=== PATIENT | female | born 1965 | race Caucasian/White ===

== ENCOUNTER → 2018-01-30 | Outpatient (CLI) | payer BC, OTHER ==
[~2018-01-30] VITALS: Ht 177.8 cm; Wt 125.2 kg
[~2018-01-30] MED LIST: ADDERALL 20 MG20 M1 PO; CELEXA40 MG PO; DICLOFENAC SODI25 MG PO
--- NOTE | ~2018-01-30 | CATHLAB ---
[facility] [address] [place] [address] INVASIVE PROCEDURE REPORT Name: DANE CHOWDHURY [facility]: [facility] [id number] Admission: 01/30/18 Attend Phys: Stephen Chacon Discharge: Date of : 65 Date of Service: 02/05/18 1156 Report #: [id number] THIS REPORT FOR: //name// APPROVED REPORT Study performed: 01/30/2018 08:48:28 Patient Details Patient Status: Out-Patient Room #: The patient is a 52 year-old female Event Personnel Stephen Painter Electronic Musical Instrument Repairer,, Mayda Aguilar RN RN, Louis Bellamy RN RN, Steven Hernández Partnoy, Nancy RTR, CLERK SECRETARY Monitor Procedures Performed Left Heart Cath w/or w/o Coronaries [id number] [facility] Indication Positive stress test, Chest pain Procedure Narrative The Right Groin^ was infiltrated with 1% Lidocaine subcutaneous anesthesia. A PINNACLE 4FR Sheath #[id number] sheath was inserted into the RFA^. Coronary angiography was performed using coronary diagnostic catheters. The right coronary system was accessed and visualized with a JR4 catheter. The left coronary system was accessed and visualized with a JL4 catheter. The left ventricle was accessed and visualized with a PIGTAIL catheter. Left ventricular/Aortic Valve gradient assessed via catheter pullback. Hemostasis was obtained with manual pressure following sheath removal without any complications. The patient tolerated the procedure well and there were no complications associated with the procedure. There was no hematoma. Intraoperative Conscious Sedation Sedation start time: 9.54 Case end Time: 10.25 Versed 2 mg Fluoro Time: 1.28 minutes Dose: DAP 2203.10 cGycm2 337 mGy Contrast Type and Amount: Omnipaque 45 ml [facility] [place] [address] INVASIVE PROCEDURE REPORT Name: DANE CHOWDHURY Room #: REG [facility]#: [id number] Admission: 01/30/18 Attend Phys: Stephen Chacon Discharge: Date of : 65 Date of Service: 02/05/18 1156 Report #: [id number] Coronary Angiography The patient's coronary anatomy is right dominant. Diagnostic Cath Left Main Left main is of normal origin and caliber bifurcates or tenderness in the left circumflex is free of high-grade disease. LAD Moderate caliber type III vessel which courses in the anterior interventricular sulcus tapering towards the apex and terminating in the posterior aspect of left ventricle. No significant high-grade lesions are noted. There is a partial bridging in the proximal third of the LAD. Diagonal 1 Cody elevated vessel without significant lesions identified Circumflex On her caliber vessel courses laterally giving rise to marginal branches of which no high-grade lesions are noted and terminates its is small caliber posterior wall branch at the giving rise to first marginal branch OM1 Large to moderate caliber vessel with quite tortuous course but free of high-grade disease Right Coronary Normal origin and dominant vessel without significant stenosis or irregularity seen R PDA Caliber proceeds posteriorly in the AV groove QRS a posterior descending artery. No significant stenotic lesions are noted caliber vessel without Left Ventriculography Left Ventriculography was not performed. Hemodynamics The aortic pressure is 137/78 mmHg with a mean of 101 mmHg. The left ventricular pressure is 135/14 mmHg with a mean of mmHg. The left ventricular end diastolic pressure is 24 mmHg. There was no gradient across the aortic valve upon pullback. Pullback from the left ventricle to the aorta revealed no gradient across the aortic valve. Conclusion 1. 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 Normal hemodynamics [facility] [address] [place] [address] INVASIVE PROCEDURE REPORT Name: DANE CHOWDHURY Room #: [facility] [id number] Admission: 01/30/18 Attend Phys: Stephen Chacon Discharge: Date of : 65 Date of Service: 02/05/18 1156 Report #: [id number] Recommendations Cardiac Risk Reduction Program <ELECTRONICALLY SIGNED> By: Stephen Painter MD 02/05/18 1156 1156 1156 Stephen Painter MD /INF
[2018-01-30 08:29] VITALS: BP 123/77
[2018-01-30 08:41] LABS: HEMATOCRIT 39.8 % (37.0-47.0); HEMOGLOBIN 13.4 gm/dL (12.0-15.0); MCHC 33.8 g/dL (28.0-37.0); MCV 88.8 fL (80.0-100.0); RBC 4.47 mil/uL (4.20-5.00); RDW 13.9 % (10.5-14.5); WBC 6.4 thou/uL (4.0-11.0)
[2018-01-30 08:49] LABS: CALCIUM 9.1 mg/dL (8.5-10.1); CREATININE 0.8 mg/dL (0.6-1.0); POTASSIUM 4.6 mmol/L (3.5-5.1)
[2018-01-30 08:54] LABS: APTT 31.7 Seconds (24.5-32.8); PROTIME 10.5 Seconds (9.3-11.4)
== END | disposition home or self-care (01) ==
LOC: CATH 01-29 07:33
PROVIDERS: Internal Medicine
DX: I25.10 Atherosclerotic heart disease of native coronary artery without angina pectoris (principal); E78.5 Hyperlipidemia, unspecified; Z98.890 Other specified postprocedural states; Z79.899 Other long term (current) drug therapy